=== PATIENT | female | born 1965 | race Two or more races ===

== ENCOUNTER 2022-04-22 14:28 | Emergency (ER) | payer OTHER ==
[~2022-04-22] VITALS: Ht 152.4 cm; Wt 93.0 kg
[2022-04-22] MEDS ORDERED: GRALISE600 MG PO (14:43)
[2022-04-22] MEDS ORDERED: RAYOS1 MG PO (14:43)
[2022-04-22] MEDS ORDERED: EFFEXOR XR75 MG PO (14:44)
[2022-04-22] MEDS ORDERED: ZESTRIL10 M1 (14:44)
[2022-04-22] MEDS ORDERED: ACID REDUCER20 M1 (14:44)
[2022-04-22] MEDS ORDERED: GLIPIZIDE ER10 MG PO (14:45)
[2022-04-22] MEDS ORDERED: NOVOLIN 70100 UNIT/1 (14:45)
== END 2022-04-22 18:13 | disposition home or self-care (01) ==
LOC: ER 14:28
DX: R07.89 Other chest pain (principal); I10 Essential (primary) hypertension; R73.9 Hyperglycemia, unspecified; E11.9 Type 2 diabetes mellitus without complications; Z79.899 Other long term (current) drug therapy; Z79.4 Long term (current) use of insulin